=== PATIENT | female | born 1995 | race Two or more races ===

== ENCOUNTER 2022-06-19 13:57 | Emergency (ER) | payer OTHER ==
--- NOTE | 2022-06-19 14:31 | NUR ---
CALLED IN ED WAITING ROOM. NO RESPONSE.
--- NOTE | 2022-06-19 14:54 | NUR ---
CALLED TO TRIAGE,NO ANSWER
== END 2022-06-19 14:54 | disposition left against medical advice (07) ==
LOC: ER 14:00
DX: Z53.21 Procedure and treatment not carried out due to patient leaving prior to being seen by health care provider (principal)